=== PATIENT | female | born 1965 | race Caucasian/White ===

== ENCOUNTER 2021-06-11 10:45 | Day surgery (SDC) | payer MEDICARE ==
[2021-06-11] MEDS ORDERED: BUPIVACAINE 0.5% VIAL IJ ONE (10:46)
[2021-06-11] MEDS ORDERED: Depo-Medrol 40 MG/ML IM ONE (10:46)
[2021-06-11] MEDS ORDERED: DIPRIVAN 200 MG/20 ML IV ONE (11:24)
[2021-06-11] MEDS ORDERED: Lactated Ringers 1,000 ML IV ONE (16:13)
--- NOTE | 2021-06-12 11:20 | XRAY ---
8 seconds fluoroscopy time in surgery for intra-articular injection of the right knee.
--- NOTE | 2021-06-12 11:20 | XRAY ---
9 seconds fluoroscopy time in surgery for intra-articular injection of the left knee.
--- NOTE | 2021-06-12 12:09 | XRAY ---
Indication: Intra-articular left knee injection. Intra-operative fluoroscopy was provided for 9 seconds. A single digital spot image was submitted for interpretation demonstrates a needle tip projected over the left femur intercondylar notch. A small amount of contrast has been injected for needle tip placement. Correlate with intraoperative findings/report.
--- NOTE | 2021-06-12 12:11 | XRAY ---
Indication: Intra-articular right knee injection. Intra-operative fluoroscopy was provided for 8 seconds. A single digital spot image was submitted for interpretation demonstrates a needle tip projected over the right femur intercondylar notch. A small amount of contrast has been injected for needle tip placement. Correlate with intraoperative findings/report.
== END 2021-06-11 11:55 | disposition home or self-care (01) ==
LOC: SDC-PAIN 10:45
PROVIDERS: ATTEND Psychiatry & Neurology Pain Medicine
DX: M17.0 Bilateral primary osteoarthritis of knee (principal); Z79.899 Other long term (current) drug therapy
CPT/HCPCS: 20610; 73560; 77002; J1030; J2704; Q9966

== ENCOUNTER 2021-06-25 12:36 | Day surgery (SDC) | payer MEDICARE ==
[2021-06-25] MEDS ORDERED: Depo-Medrol 40 MG/ML IM ONE (12:37)
[2021-06-25] MEDS ORDERED: LIDOCAINE HCL 2% 100 MG/5 ML IJ ONE (12:37)
[2021-06-25] MEDS ORDERED: DIPRIVAN 200 MG/20 ML IV ONE (14:11)
--- NOTE | 2021-06-25 15:03 | XRAY ---
Indication: Bilateral L4-S1 MBB. Intraoperative fluoroscopy provided for 15 seconds. Single digital spot image submitted for interpretation demonstrates posterior needle tips projecting over the expected left and right L4-S1 nerve roots. Correlate with intraoperative findings/report.
[2021-06-25] MEDS ORDERED: Lactated Ringers 1,000 ML IV ONE (15:22)
--- NOTE | 2021-06-25 16:43 | XRAY ---
17 seconds fluoroscopy time in surgery for bilateral L4-S1 MBB.
== END 2021-06-25 14:35 | disposition home or self-care (01) ==
LOC: SDC-PAIN 12:36
PROVIDERS: ATTEND Psychiatry & Neurology Pain Medicine
DX: M47.816 Spondylosis without myelopathy or radiculopathy, lumbar region (principal); Z79.899 Other long term (current) drug therapy
CPT/HCPCS: 64493; 64494; 72020; 77002; J1030; J2704

== ENCOUNTER 2021-08-01 12:33 | Day surgery (SDC) | payer MEDICARE ==
[2021-08-01] MEDS ORDERED: BUPIVACAINE 0.5% VIAL IJ ONE (12:34)
[2021-08-01] MEDS ORDERED: Depo-Medrol 40 MG/ML IM ONE (12:34)
[2021-08-01] MEDS ORDERED: Lactated Ringers 1,000 ML IV ONE (12:41)
[2021-08-01] MEDS ORDERED: DIPRIVAN 200 MG/20 ML IV ONE (14:12)
--- NOTE | 2021-08-01 14:58 | XRAY ---
11 seconds fluoroscopy time in surgery for bilateral L4-S1 MBB.
--- NOTE | 2021-08-01 14:58 | XRAY ---
Indication: Bilateral L4-S1 MBB. Intraoperative fluoroscopy provided for 11 seconds. Single digital spot image submitted for interpretation demonstrates posterior needle tips projecting over the expected left and right L4-S1 nerve roots. Correlate with intraoperative findings/report.
== END 2021-08-01 14:38 | disposition home or self-care (01) ==
LOC: SDC-PAIN 12:33
PROVIDERS: ATTEND Psychiatry & Neurology Pain Medicine
DX: M47.816 Spondylosis without myelopathy or radiculopathy, lumbar region (principal); F41.9 Anxiety disorder, unspecified; F32.9 Major depressive disorder, single episode, unspecified; J44.9 Chronic obstructive pulmonary disease, unspecified; I50.9 Heart failure, unspecified; Z79.899 Other long term (current) drug therapy
CPT/HCPCS: 64493; 64494; 72020; 77002; J1030; J2704

== ENCOUNTER 2021-09-04 11:42 | Day surgery (SDC) | payer MEDICARE ==
[2021-09-04] MEDS ORDERED: BUPIVACAINE 0.5% VIAL IJ ONE (11:43)
[2021-09-04] MEDS ORDERED: Depo-Medrol 40 MG/ML IM ONE (11:43)
[2021-09-04] MEDS ORDERED: Lactated Ringers 1,000 ML IV ONE ×2 (13:20→14:12)
[2021-09-04] MEDS ORDERED: DIPRIVAN 200 MG/20 ML IV ONE (13:44)
--- NOTE | 2021-09-04 16:37 | XRAY ---
Indication: Right knee injection. Intraoperative fluoroscopy provided for 16 seconds. Single digital spot image submitted for interpretation demonstrates needle tip projecting over the right femur intercondylar notch. Small amount of contrast injected for needle tip placement. Correlate with intraoperative findings/report.
--- NOTE | 2021-09-04 16:39 | XRAY ---
16 seconds fluoroscopy time in surgery for intra-articular and pes anserine injections of the right knee.
--- NOTE | 2021-09-04 16:45 | XRAY ---
Indication: Left knee injection. Intraoperative fluoroscopy provided for 5 seconds. Single digital spot image submitted for interpretation demonstrates needle tip projecting over the left femur intercondylar notch. Small amount of contrast injected for needle tip placement. Correlate with intraoperative findings/report.
--- NOTE | 2021-09-04 16:49 | XRAY ---
5 seconds fluoroscopy time in surgery for intra-articular and pes anserine injections of the left knee.
== END 2021-09-04 14:10 | disposition home or self-care (01) ==
LOC: SDC-PAIN 11:42
PROVIDERS: ATTEND Psychiatry & Neurology Pain Medicine
DX: M17.0 Bilateral primary osteoarthritis of knee (principal); Z79.899 Other long term (current) drug therapy
CPT/HCPCS: 20610; 73560; 77002; J1030; J2704; Q9966

== ENCOUNTER 2021-10-08 11:01 | Day surgery (SDC) | payer MEDICARE ==
[2021-10-08] MEDS ORDERED: BUPIVACAINE 0.5% VIAL IJ ONE (11:02)
[2021-10-08] MEDS ORDERED: Xylocaine 1% Vial 30 ML PF IJ ONE (11:02)
[2021-10-08] MEDS ORDERED: Depo-Medrol 40 MG/ML IM ONE (11:02)
[2021-10-08] MEDS ORDERED: Lactated Ringers 1,000 ML IV ONE (12:35)
[2021-10-08] MEDS ORDERED: DIPRIVAN 200 MG/20 ML IV ONE (13:26)
--- NOTE | 2021-10-08 14:26 | XRAY ---
Indication: Left L4-S1 RFA. Intraoperative fluoroscopy provided for 24 seconds. 3 digital spot image submitted for interpretation demonstrates posterior needle tips projecting over the expected left L4-S1 nerve roots. Correlate with intraoperative findings/report.
--- NOTE | 2021-10-08 16:46 | XRAY ---
24 seconds fluoroscopy was used in surgery for a left L4-S1 RFA.
== END 2021-10-08 14:00 | disposition home or self-care (01) ==
LOC: SDC-PAIN 11:01
PROVIDERS: ATTEND Psychiatry & Neurology Pain Medicine
DX: M47.816 Spondylosis without myelopathy or radiculopathy, lumbar region (principal); Z79.899 Other long term (current) drug therapy
CPT/HCPCS: 64493; 64494; 72100; 77002; J1030; J2001; J2704

== ENCOUNTER 2021-10-15 10:34 | Day surgery (SDC) | payer MEDICARE ==
[2021-10-15] MEDS ORDERED: Depo-Medrol 40 MG/ML IM ONE (10:35)
[2021-10-15] MEDS ORDERED: Xylocaine 1% Vial 30 ML PF IJ ONE (10:35)
[2021-10-15] MEDS ORDERED: BUPIVACAINE 0.5% VIAL IJ ONE (10:35)
[2021-10-15] MEDS ORDERED: DIPRIVAN 200 MG/20 ML IV ONE (13:00)
--- NOTE | 2021-10-15 13:29 | XRAY ---
Indication: Right L4-S1 RFA. Intraoperative fluoroscopy provided for 22 seconds. 4 digital spot image submitted for interpretation demonstrates posterior needle tips projecting over the expected right L4-S1 nerve roots. Correlate with intraoperative findings/report.
--- NOTE | 2021-10-15 13:31 | XRAY ---
22 seconds fluoroscopy time in surgery for right L4-S1 RFA.
[2021-10-15] MEDS ORDERED: Lactated Ringers 1,000 ML IV ONE (14:26)
== END 2021-10-15 13:29 | disposition home or self-care (01) ==
LOC: SDC-PAIN 10:34
PROVIDERS: ATTEND Psychiatry & Neurology Pain Medicine
DX: M47.816 Spondylosis without myelopathy or radiculopathy, lumbar region (principal); Z79.899 Other long term (current) drug therapy
CPT/HCPCS: 64635; 64636; 72100; 77002; 82947; J1030; J2001; J2704

== ENCOUNTER 2022-04-08 10:02 | Day surgery (SDC) | payer MEDICARE ==
[2022-04-08] MEDS ORDERED: Depo-Medrol 40 MG/ML IM ONE (10:03)
[2022-04-08] MEDS ORDERED: Marcaine Mpf 0.5% Vial 30 Ml IJ ONE (10:03)
[2022-04-08] MEDS ORDERED: DIPRIVAN 200 MG/20 ML IV ONE (12:26)
--- NOTE | 2022-04-08 13:42 | XRAY ---
Indication: Bilateral SI joint injection. Intraoperative fluoroscopy provided for 16 seconds. 4 digital spot images submitted for interpretation demonstrate posterior needle tips projecting over the inferior left and right SI joint. Correlate with intraoperative findings/report.
--- NOTE | 2022-04-08 14:47 | XRAY ---
16 seconds fluoroscopy time in surgery for bilateral SI joint injections.
== END 2022-04-08 12:48 | disposition home or self-care (01) ==
LOC: SDC-PAIN 10:02
PROVIDERS: ATTEND Psychiatry & Neurology Pain Medicine
DX: M46.1 Sacroiliitis, not elsewhere classified (principal); E11.9 Type 2 diabetes mellitus without complications; Z79.899 Other long term (current) drug therapy
CPT/HCPCS: 27096; 72202; 77002; 82947; G0260; J1030; J2704

== ENCOUNTER → 2022-05-13 | Day surgery (SDC) | payer MEDICARE | LOC: SDC-PAIN 10:43 | PROVIDERS: ATTEND Psychiatry & Neurology Pain Medicine | DX: Z53.9 Procedure and treatment not carried out, unspecified reason (principal) ==

== ENCOUNTER 2022-06-03 07:50 | Day surgery (SDC) | payer MEDICARE ==
[2022-06-03] MEDS ORDERED: LIDOCAINE HCL 1% 50 MG/5 ML VL PF IJ ONE (07:51)
[2022-06-03] MEDS ORDERED: BUPIVACAINE 0.5% VIAL IJ ONE (07:51)
[2022-06-03] MEDS ORDERED: Depo-Medrol 40 MG/ML IM ONE (07:51)
[2022-06-03] MEDS ORDERED: DIPRIVAN 200 MG/20 ML IV ONE (09:01)
[2022-06-03] MEDS ORDERED: Lactated Ringers 1,000 ML IV ONE (14:23)
--- NOTE | 2022-06-03 17:56 | XRAY ---
Indication: Right L4-S1 RFA. Intraoperative fluoroscopy provided for 25 seconds. 3 digital spot images submitted for interpretation demonstrates posterior needle tips projecting over the expected right L4-S1 nerve roots. Correlate with intraoperative findings/report.
--- NOTE | 2022-06-03 18:33 | XRAY ---
25 seconds of fluoroscopy was used in surgery for a right L4-S1 RFA.
== END 2022-06-03 09:15 | disposition home or self-care (01) ==
LOC: SDC-PAIN 07:50
PROVIDERS: ATTEND Psychiatry & Neurology Pain Medicine
DX: M47.816 Spondylosis without myelopathy or radiculopathy, lumbar region (principal); E11.9 Type 2 diabetes mellitus without complications; Z79.899 Other long term (current) drug therapy
CPT/HCPCS: 64635; 64636; 72100; 77002; 82947; J1030; J2001; J2704

== ENCOUNTER 2022-06-10 08:43 | Day surgery (SDC) | payer MEDICARE ==
[2022-06-10] MEDS ORDERED: LIDOCAINE HCL 1% 50 MG/5 ML VL PF IJ ONE (08:44)
[2022-06-10] MEDS ORDERED: Marcaine Mpf 0.5% Vial 30 Ml IJ ONE (08:44)
[2022-06-10] MEDS ORDERED: Depo-Medrol 40 MG/ML IM ONE (08:44)
[2022-06-10] MEDS ORDERED: DIPRIVAN 200 MG/20 ML IV ONE (09:50)
--- NOTE | 2022-06-10 10:49 | XRAY ---
Indication: Left L4-S1 RFA. Intraoperative fluoroscopy provided for 28 seconds. 4 digital spot images submitted for interpretation demonstrates posterior needle tips projecting over the expected left L4-S1 nerve roots. Correlate with intraoperative findings/report.
--- NOTE | 2022-06-10 10:56 | XRAY ---
28 seconds fluoroscopy time in surgery for left L4-S1 RFA.
[2022-06-10] MEDS ORDERED: Lactated Ringers 1,000 ML IV ONE (12:40)
== END 2022-06-10 10:25 | disposition home or self-care (01) ==
LOC: SDC-PAIN 08:43
PROVIDERS: ATTEND Psychiatry & Neurology Pain Medicine
DX: M47.816 Spondylosis without myelopathy or radiculopathy, lumbar region (principal); Z79.899 Other long term (current) drug therapy
CPT/HCPCS: 64635; 64636; 72100; 77002; 82947; J1030; J2001; J2704

== ENCOUNTER 2022-09-09 09:32 | Day surgery (SDC) | payer MEDICARE ==
[2022-09-09] MEDS ORDERED: Depo-Medrol 40 MG/ML IM ONE (09:33)
[2022-09-09] MEDS ORDERED: BUPIVACAINE 0.5% VIAL IJ ONE ×2 (09:33)
[2022-09-09] MEDS ORDERED: DIPRIVAN 200 MG/20 ML IV ONE (11:21)
--- NOTE | 2022-09-09 12:19 | XRAY ---
Indication: Right knee injection. Intraoperative fluoroscopy provided 10 seconds. Single digital spot image submitted for interpretation demonstrates needle tip projecting over the right femur intercondylar notch. Small amount of contrast injected for needle tip placement. Correlate with intraoperative findings/report.
--- NOTE | 2022-09-09 12:19 | XRAY ---
10 seconds of fluoroscopy was used in surgery for a right intra-articular knee injection.
[2022-09-09] MEDS ORDERED: Lactated Ringers 1,000 ML IV ONE (12:52)
== END 2022-09-09 11:50 | disposition home or self-care (01) ==
LOC: SDC-PAIN 09:32
PROVIDERS: ATTEND Psychiatry & Neurology Pain Medicine
DX: M19.011 Primary osteoarthritis, right shoulder (principal); Z79.899 Other long term (current) drug therapy
CPT/HCPCS: 20610; 73560; 77002; 82947; J1030; J2704; Q9966

== ENCOUNTER 2023-05-19 09:50 | Day surgery (SDC) | payer MEDICARE ==
[2023-05-19] MEDS ORDERED: Depo-Medrol 40 MG/ML IM ONE (09:51)
[2023-05-19] MEDS ORDERED: BUPIVACAINE 0.5% VIAL IJ ONE (09:51)
[2023-05-19] MEDS ORDERED: LIDOCAINE HCL 1% 50 MG/5 ML VL PF IJ ONE (09:51)
[2023-05-19] MEDS ORDERED: Xylocaine-Mpf 2% 5 Ml Vial ONE (11:54)
[2023-05-19] MEDS ORDERED: DIPRIVAN 200 MG/20 ML IV ONE (11:54)
[2023-05-19] MEDS ORDERED: Lactated Ringers 1,000 ML IV ONE (12:33)
--- NOTE | 2023-05-19 13:11 | XRAY ---
Indication: Right L4-S1 RFA. Intraoperative fluoroscopy provided for 24 seconds. 3 digital spot image submitted for interpretation demonstrates posterior needle tips projecting over the expected right L4-S1 nerve roots. Correlate with intraoperative findings/report.
--- NOTE | 2023-05-19 13:15 | XRAY ---
24 seconds of fluoroscopy was used in surgery for a right L4-S1 RFA.
== END 2023-05-19 12:25 | disposition home or self-care (01) ==
LOC: SDC-PAIN 09:50
PROVIDERS: ATTEND Psychiatry & Neurology Pain Medicine
DX: M47.816 Spondylosis without myelopathy or radiculopathy, lumbar region (principal); E11.9 Type 2 diabetes mellitus without complications; Z79.899 Other long term (current) drug therapy
CPT/HCPCS: 64635; 64636; 72100; 77002; 82947; J1030; J2001; J2704

== ENCOUNTER 2023-07-08 08:18 | Day surgery (SDC) | payer MEDICARE ==
[2023-07-08] MEDS ORDERED: BUPIVACAINE 0.5% VIAL IJ ONE (08:19)
[2023-07-08] MEDS ORDERED: XYLOCAINE 1% HCL 20 ML MDV IJ ONE (08:19)
[2023-07-08] MEDS ORDERED: DIPRIVAN 200 MG/20 ML IV ONE (10:21)
[2023-07-08] MEDS ORDERED: Lactated Ringers 1,000 ML IV ONE (11:07)
--- NOTE | 2023-07-08 12:26 | XRAY ---
Indication: Left L4-S1 RFA. Intraoperative fluoroscopy provided for 34 seconds. 5 digital spot image submitted for interpretation demonstrates posterior needle tips projecting over the expected left L4-S1 nerve roots. Correlate with intraoperative findings/report.
--- NOTE | 2023-07-08 12:33 | XRAY ---
34 seconds of fluoroscopy was used in surgery for a left L4-S1 RFA.
== END 2023-07-08 10:55 | disposition home or self-care (01) ==
LOC: SDC-PAIN 08:18
PROVIDERS: ATTEND Psychiatry & Neurology Pain Medicine
DX: M47.816 Spondylosis without myelopathy or radiculopathy, lumbar region (principal); E11.9 Type 2 diabetes mellitus without complications
CPT/HCPCS: 64635; 64636; 72100; 77002; 82947; J2704

== ENCOUNTER 2024-08-08 10:25 | Observation (INO) | payer MEDICARE ==
--- NOTE | 2024-08-08 10:51 | ERPHSYRPT ---
- History of Present Illness Time Seen by Provider: 08/08/24 10:40 Historian: patient Exam Limitations: no limitations Patient Subjective Stated Complaint: Chest pain Triage Nursing Assessment: Patient brought to ER per w/c and transferred to bed per self. Patient A+O X 3. Patient's skin pink, warm and dry. Patient states she was across the street at appointment with Pulmonology Dr. Arechiga when they finished her PFT testing they got her up to walk and her heart rate got elevated,into the 130s patient started sweating and she felt fluttering in her chest. Patient states she has chronic low back pain 5/10 and her heart is cont to flutter at times. Lungs clear a/p ector. Dr. Arechiga wanted patient sent to ER for eval. Physician History: 58-year-old female presents to our ED as a referral from her installer technician. Patient just completed a pulmonary function testing. Patient immediately afterwards became tachycardic diaphoretic. Patient experienced heart palpitations and chest pain. She was short of breath. Symptoms persisted until arrival. Patient admits to history of congestive heart failure. No trauma no fever. No vomiting. Patient is currently experiencing "chest pressure". No florentino chest pain per se. Symptoms are moderate in intensity when present. Symptoms are mild at the present time. Patient appears to be resting comfortably. No acute distress. Patient voices no other complaints or concerns at this time. Portions of this note were created with voice recognition technology. There may be grammatical, spelling, punctuation or sound alike errors Timing/Duration: today Activities at Onset: none Quality: aching Location: substernal Chest Pain Radiation: no radiation Severity of Pain-Max: moderate Severity of Pain-Current: mild Modifying Factors: Improves With: nothing Associated Symptoms: denies symptoms Nitro Today/Relief: no nitro taken today Aspirin Treatment Today: no aspirin today Allergies/Adverse Reactions: lamotrigine [From Lamictal] Allergy (Verified 08/08/24 10:28) meperidine [From Demerol] Allergy (Verified 08/08/24 10:28) Home Medications: Unobtainable 08/08/24 [History] Hx Influenza Vaccination/Date Given: Yes Hx Pneumococcal Vaccination/Date Given: Yes Immunizations Up to Date: Yes Travel Risk - International Travel Have you traveled outside of the country in past 3 weeks: No - Emerging Infectious Disease Are you exhibiting symptoms associated with any current EIDs: No - Review of Systems Constitutional: No Symptoms, No Fever, No Chills Eyes: No Symptoms Ears, Nose, & Throat: No Symptoms Respiratory: No Symptoms, No Cough, No Dyspnea Cardiac: No Symptoms, No Chest Pain, No Edema, No Syncope Abdominal/Gastrointestinal: No Symptoms, No Abdominal Pain, No Nausea, No Vomiting, No Diarrhea Genitourinary Symptoms: No Symptoms, No Dysuria Musculoskeletal: No Symptoms, No Back Pain, No Neck Pain Skin: No Symptoms, No Rash Neurological: No Symptoms, No Dizziness, No Focal Weakness, No Sensory Changes Psychological: No Symptoms Endocrine: No Symptoms Hematologic/Lymphatic: No Symptoms Immunological/Allergic: No Symptoms All Other Systems: Reviewed and Negative - Past Medical History Neurological History: Peripheral Neuropathy, Other ENT History: No Pertinent History Cardiac History: No Pertinent History Respiratory History: Asthma, COPD, Sleep Apnea Endocrine Medical History: Other Musculoskeletal History: Arthritis, Fibromyalgia GI Medical History: Diverticulitis, GERD History: No Pertinent History Psycho-Social History: Anxiety, Depression Female Reproductive Disorders: No Pertinent History Other Medical History: Erbs palsy right arm. pre diabetic - Past Surgical History Past Surgical History: Yes Neuro Surgical History: No Pertinent History Cardiac: No Pertinent History Respiratory: No Pertinent History Gastrointestinal: Cholecystectomy Musculoskeletal: Orthopedic Surgery Female Surgical History: Section Other Surgical History: C section X 1. right shoulder fusion - Social History Smoking Status: Never smoker Exposure to second hand smoke: Yes Drug Use: none - Social Determinants of Health Will the patient participate in the screening: Yes Do you worry about a steady place to live?: No Do you have any problems with any of the following?: No known problems In the past 12 months,have you had to go without utilities?: No Transportation Issues: No Has anyone in your support network made you feel unsafe?: No Have you or anyone in your house had to go without enough: No - Nursing Vital Signs Nursing Vital Signs: Initial Vital Signs Temperature 96.0 F 08/08/24 10:30 Pulse Rate 85 08/08/24 10:30 Respiratory Rate 18 08/08/24 10:30 Blood Pressure 157/86 08/08/24 10:30 O2 Sat by Pulse Oximetry 99 08/08/24 10:30 Pain Scale Pain Intensity 4 - Physical Exam General Appearance: no apparent distress, alert Eye Exam: PERRL/EOMI, eyes nml inspection Ears, Nose, Throat Exam: normal ENT inspection, pharynx normal, moist mucous membranes Neck Exam: normal inspection, non-tender, supple, full range of motion Respiratory Exam: normal breath sounds, lungs clear, airway intact, No respiratory distress Cardiovascular Exam: regular rate/rhythm, normal heart sounds Gastrointestinal/Abdomen Exam: soft, No tenderness, No mass Back Exam: normal inspection, No CVA tenderness, No vertebral tenderness Extremity Exam: normal inspection, normal range of motion, pedal edema, other (1+ pitting edema) Neurologic Exam: alert, oriented x 3, cooperative, normal mood/affect, sensation nml, No motor deficits Skin Exam: normal color, warm, dry Lymphatic Exam: No adenopathy SpO2 Interpretation: normal SpO2: 98 O2 Delivery: Room Air - Course Nursing assessment & vital signs reviewed: Yes EKG Interpreted by Me: RATE (82), Sinus Rhythm, NORMAL AXIS, Right Bundle Branch Block Rhythm Strip: 2nd degree type II block - Radiology Exams Chest X-ray Interpretation: Teleradiologist Report (Nonacute chest with chronic features) Ordered Tests: Active Orders 24 hr Category Date Time Status Manager [employer] STAT Care 08/08/24 10:38 Active EKG-ER Only STAT Care 08/08/24 10:37 Active IV Insertion STAT Care 08/08/24 10:37 Active Pulse Oximetry (ED) STAT Care 08/08/24 10:37 Active CHEST 1 VIEW (PORTABLE) Stat Exams 08/08/24 12:01 Completed CBC W DIFF Stat Lab 08/08/24 10:50 Completed CMP Stat Lab 08/08/24 10:50 Completed D-DIMER QUANTITATIVE Stat Lab 08/08/24 10:50 Completed NT PRO BNPII Stat Lab 08/08/24 10:50 Completed TROPONIN Q4H Lab 08/08/24 10:50 Completed TROPONIN Q4H Lab 08/08/24 12:50 Completed TROPONIN Q4H Lab 08/08/24 18:45 Ordered Transfer Order Routine Transfer 08/08/24 Ordered Medication Summary Discontinued Medications Generic Name Dose Route Start Last Admin Trade Name Freq PRN Reason Stop Dose Admin Aspirin 324 mg 08/08/24 10:55 08/08/24 11:27 Aspirin 81 Mg Tab.Chew PO 08/08/24 10:56 324 mg STAT ONE Administration Aspirin Confirm 08/08/24 11:24 Aspirin 81 Mg Tab.Chew Administered 08/08/24 11:25 Dose 324 mg .ROUTE .STK-MED ONE Nitroglycerin 1 gm 08/08/24 10:56 08/08/24 11:27 Nitroglycerin 1 Gm Packet TOP 08/08/24 10:57 1 gm STAT ONE Administration Nitroglycerin Confirm 08/08/24 11:24 Nitroglycerin 1 Gm Packet Administered 08/08/24 11:25 Dose 1 gm .ROUTE .STK-MED ONE Lab/Rad Data: Laboratory Result Diagrams 08/08/24 10:50 08/08/24 10:50 Laboratory Results 08/08/24 08/08/24 08/08/24 Range/Units 12:50 10:50 10:50 WBC (3.98-10.04) x10^3/uL RBC (3.93-5.22) x10^6/uL Hgb (11.2-15.7) g/dL Hct (34.1-44.9) % MCV (79.4-94.8) fL MCH (25.6-32.2) pg MCHC (32.2-35.5) g/dL RDW (11.7-14.4) % Plt Count (182-369) x10^3/uL MPV (9.4-12.3) fL Gran % (34.0-71.1) % Immature Gran % (Auto) (0.001-0.429) % Nucleat RBC Rel Count (0.00-0.2) % Eos # (Auto) (0.04-0.36) x10^3/uL Immature Gran # (Auto) (0.001-0.031) x10^3u/L Absolute Lymphs (auto) (1.18-3.74) x10^3/uL Absolute Monos (auto) (0.24-0.86) x10^3/uL Absolute Nucleated RBC (0.00-0.012) x10^3u/L Lymphocytes % (19.3-51.7) % Monocytes % (4.7-12.5) % Eosinophils % (0.7-5.8) % Basophils % (0.1-1.2) % Absolute Granulocytes (1.56-6.13) x10^3/uL Basophils # (0.01-0.08) x10^3/uL D-Dimer 0.28 (0.0-0.50) mg/L Sodium (135-145) mmol/L Potassium (3.5-5.1) mmol/L Chloride (98-107) mmol/L Carbon Dioxide (22-30) mmol/L Anion Gap (5-15) MEQ/L BUN (7-17) mg/dL Creatinine (0.52-1.04) mg/dL Estimated GFR ML/MIN Glucose (74-106) mg/dL Calcium (8.4-10.2) mg/dL Total Bilirubin (0.2-1.3) mg/dL AST (14-36) U/L ALT (0-35) U/L Alkaline Phosphatase (38-126) U/L Troponin I < 0.012 < 0.012 (0.000-0.033) ng/mL NT-Pro-B Natriuret Pep 69.0 (<300) pg/mL Serum Total Protein (6.3-8.2) g/dL Albumin (3.5-5.0) g/dL 08/08/24 08/08/24 Range/Units 10:50 10:50 WBC 9.0 (3.98-10.04) x10^3/uL RBC 5.07 (3.93-5.22) x10^6/uL Hgb 15.7 (11.2-15.7) g/dL Hct 47.8 H (34.1-44.9) % MCV 94.3 (79.4-94.8) fL MCH 31.0 (25.6-32.2) pg MCHC 32.8 (32.2-35.5) g/dL RDW 12.3 (11.7-14.4) % Plt Count 239 (182-369) x10^3/uL MPV 9.8 (9.4-12.3) fL Gran % 52.3 (34.0-71.1) % Immature Gran % (Auto) 0.6 H (0.001-0.429) % Nucleat RBC Rel Count 0.0 (0.00-0.2) % Eos # (Auto) 0.11 (0.04-0.36) x10^3/uL Immature Gran # (Auto) 0.05 H (0.001-0.031) x10^3u/L Absolute Lymphs (auto) 3.32 (1.18-3.74) x10^3/uL Absolute Monos (auto) 0.77 (0.24-0.86) x10^3/uL Absolute Nucleated RBC 0.00 (0.00-0.012) x10^3u/L Lymphocytes % 36.8 (19.3-51.7) % Monocytes % 8.5 (4.7-12.5) % Eosinophils % 1.2 (0.7-5.8) % Basophils % 0.6 (0.1-1.2) % Absolute Granulocytes 4.73 (1.56-6.13) x10^3/uL Basophils # 0.05 (0.01-0.08) x10^3/uL D-Dimer (0.0-0.50) mg/L Sodium 141 (135-145) mmol/L Potassium 5.1 (3.5-5.1) mmol/L Chloride 105 (98-107) mmol/L Carbon Dioxide 27 (22-30) mmol/L Anion Gap 14.5 (5-15) MEQ/L BUN 20 H (7-17) mg/dL Creatinine 1.02 (0.52-1.04) mg/dL Estimated GFR 64.6 ML/MIN Glucose 98 (74-106) mg/dL Calcium 9.8 (8.4-10.2) mg/dL Total Bilirubin 0.60 (0.2-1.3) mg/dL AST 46 H (14-36) U/L ALT 53 H (0-35) U/L Alkaline Phosphatase 76 (38-126) U/L Troponin I (0.000-0.033) ng/mL NT-Pro-B Natriuret Pep (<300) pg/mL Serum Total Protein 7.7 (6.3-8.2) g/dL Albumin 4.3 (3.5-5.0) g/dL - Progress Progress: improved Air Movement: good Progress Note: 58-year-old female presents to our ED for evaluation of chest pain and heart palpitations. Patient's heart score is a 4 which mandates admission for further evaluation. Patient will require hospitalization for further evaluation and treatment. Troponin negative x 2. Vital stable. Case discussed with hospitalist Dr. Rodas who accepts admission to observation at 1 PM. Portions of this note were created with voice recognition technology. There may be grammatical, spelling, punctuation or sound alike errors Complexity of problem addressed is moderate acute complicated. No critical care time. Complex of data reviewed and analyzed is extensive. Test ordered chest reviewed results analyzed and correlated clinically with history and physical exam. Risk of complication and or risk of morbidity/mortality of patient management is high. Patient requires hospitalization for further evaluation and treatment. Vital stable. Time spent admit patient approximately 20 minutes. Plan of care established for shared decision making. No social determinants of health present to impede follow-up. Portions of this note were created with voice recognition technology. There may be grammatical, spelling, punctuation or sound alike errors 08/08/24 13:32 Blood Culture(s) Obtained: No Antibiotics given: No Counseled pt/family regarding: lab results, diagnosis, rad results - Departure Departure Disposition: Observation Clinical Impression: ACS (acute coronary syndrome), Chest pain, Right bundle branch block Condition: Stable Critical Care Time: No Referrals: DOCTOR,NO FAMILY [Primary Care Provider] - Follow up/PCP as directed
[2024-08-08 10:52] LABS: Absolute Neutrophil Ct (ANC) 4.73 x10^3/uL (1.56-6.13); BASOPHIL % 0.6 % (0.1-1.2); Basophil (Absolute #) 0.05 x10^3/uL (0.01-0.08); Eosinophil % 1.2 % (0.7-5.8); Eosinophil (Absolute #) 0.11 x10^3/uL (0.04-0.36); Hematocrit 47.8 % (34.1-44.9); Hemoglobin 15.7 g/dL (11.2-15.7); IMMATURE GRAN # 0.05 x10^3u/L (0.001-0.031); IMMATURE GRAN % 0.6 % (0.001-0.429); Lymphocyte (Absolute #) 3.32 x10^3/uL (1.18-3.74); Lymphocytes % 36.8 % (19.3-51.7); Mean Cell Volume 94.3 fL (79.4-94.8); Mean Corpuscular Hgb Concent. 32.8 g/dL (32.2-35.5); Mean Platelet Volume 9.8 fL (9.4-12.3); Monocyte (Absolute #) 0.77 x10^3/uL (0.24-0.86); Monocytes % 8.5 % (4.7-12.5); Neutrophil % 52.3 % (34.0-71.1); Platelet Count 239 x10^3/uL (182-369); Red Blood Count 5.07 x10^6/uL (3.93-5.22); Red Cell Distribution Width 12.3 % (11.7-14.4)
[2024-08-08 11:02] LABS: ALBUMIN 4.3 g/dL (3.5-5.0); ANION GAP 14.5 MEQ/L (5-15); BILIRUBIN,TOTAL 0.6 mg/dL (0.2-1.3); Calcium 9.8 mg/dL (8.4-10.2); Creatinine 1 1.02 mg/dL (0.52-1.04); EST GLOMERULAR FILTRATION RATE 64.6 ML/MIN; Potassium 5.1 mmol/L (3.5-5.1); Total Protein 7.7 g/dL (6.3-8.2)
[2024-08-08 11:14] LABS: TROPONIN < 0.012 ng/mL (0.000-0.033)
[2024-08-08] MEDS ORDERED: BABY ASPIRIN 81 MG CHEW ONE (11:24)
[2024-08-08] MEDS ORDERED: NITRO-BID 2% UD PACKETS ONE (11:24)
[2024-08-08] MEDS: BABY ASPIRIN 81 MG CHEW PO ONE (11:27)
[2024-08-08] MEDS: NITRO-BID 2% UD PACKETS TOP ONE (11:27)
--- NOTE | 2024-08-08 12:50 | XRAY ---
Indication: Pain. Comparison: December 02, 2021 Portable chest inflated again with minimal bibasilar fibrosis/scarring. No focal infiltrate, consolidation, or large effusion. Heart not enlarged. Bony thorax intact again with osteopenia, degenerative changes, and old right humerus fracture with grossly intact hardware. Impression: Continued nonacute chest with chronic features.
--- NOTE | 2024-08-08 15:05 | PCM.HP ---
History of Present Illness - Chief Complaint Chief Complaint: ACS, Chest pain Date: 08/08/24 History of Present Illness: is a 58 year old female with PMHX of CHF, peripheral neuropathy, Asthma, COPD, Sleep apnea, arthritis, Fibromyalgia, diverticulitis, GERD, Anxiety, depression, Pre-DM, and morbid obesity. 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 Patient just completed a pulmonary function testing and immediately afterwards became tachycardic and diaphoretic. Patient experienced heart palpitations and chest pain. She was short of breath. Symptoms persisted until arrival. Patient admits to history of congestive heart failure. No trauma no fever. No vomiting. Patient is currently experiencing "chest pressure and abnormal heart sensation". Symptoms are moderate in intensity when present. Symptoms are mild at the present time. Patient appears to be resting comfortably. No acute distress. She states she feels short of breath and O2 is 97% Room air. She reposrts she does have anxiety and it could be related to this. 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 In ER she was treated with nitro paste and 324 mg ASA. - Review of Systems Constitutional: No Fever, No Chills Eyes: No Symptoms Ears, Nose, & Throat: No Symptoms Respiratory: No Cough, No Short Of Breath Cardiac: Palpitations, No Chest Pain, No Edema, No Syncope Abdominal/Gastrointestinal: No Abdominal Pain, No Nausea, No Vomiting, No Diarrhea Genitourinary Symptoms: No Dysuria Musculoskeletal: No Back Pain, No Neck Pain Skin: No Rash Neurological: No Dizziness, No Focal Weakness, No Sensory Changes Psychological: No Symptoms, Anxiety Endocrine: No Symptoms Hematologic/Lymphatic: No Symptoms Immunological/Allergic: No Symptoms Medications & Allergies Home Medications: Home Medication List Albuterol Sulfate Mdi [ALBUTEROL/Proair Hfa MDI] 2 puff IH Q4HPRN PRN 08/08/24 [History Confirmed 08/08/24] Buspirone HCl 5 mg [Buspar 5 mg] 15 mg PO TID 08/08/24 [History Confirmed 08/08/24] Dapagliflozin Propanediol [Dapagliflozin] 10 mg PO QAM 08/08/24 [History Confirmed 08/08/24] Desvenlafaxine [Desvenlafaxine ER] 50 mg PO DAILY 08/08/24 [History Confirmed 08/08/24] Diclofenac Sodium [Voltaren Arthritis Pain] 20 gm TP BID 08/08/24 [History Confirmed 08/08/24] Duloxetine HCl 30 mg [Cymbalta 30 MG Capsule] 30 mg PO QAM 08/08/24 [History Confirmed 08/08/24] Famotidine 20 mg [Pepcid 20 MG] 20 mg PO BID 08/08/24 [History Confirmed 08/08/24] Fluticasone/Vilanterol [Breo Ellipta 200-25 Mcg Inhalr] 1 puff IH DAILY 08/08/24 [History Confirmed 08/08/24] Gabapentin [Neurontin] 800 mg PO QID 08/08/24 [History Confirmed 08/08/24] Hydrocodone/Acetaminophen [Hydrocodone-Acetamin 10-325 mg] 1 tab PO TIDPRN PRN 08/08/24 [History Confirmed 08/08/24] Hydroxychloroquine Sulfate [Plaquenil] 200 mg PO DAILY 08/08/24 [History Confirmed 08/08/24] Hydroxyzine HCl 25 mg [Atarax 25 mg] 25 mg PO DAILY PRN PRN 08/08/24 [History Confirmed 08/08/24] Loratadine 10 mg [Claritin 10 mg] 10 mg PO DAILY 08/08/24 [History Confirmed 08/08/24] Montelukast Sodium 10 mg [Singulair 10 MG] 10 mg PO DAILY 08/08/24 [History Confirmed 08/08/24] Nystatin Powder 15 gm [Nystop Powder 15 gm] 1 gm TP BID 08/08/24 [History Confirmed 08/08/24] Omeprazole 20 mg PO DAILY 08/08/24 [History Confirmed 08/08/24] Potassium Chloride [Klor-Con M20] 20 meq PO DAILY 08/08/24 [History Confirmed 08/08/24] Spironolactone [Aldactone] 50 mg PO QAM 08/08/24 [History Confirmed 08/08/24] Tiotropium [place] Inhaler [Spiriva 18 Mcg/Cap Inhaler] 1 puff IH DAILY PRN PRN 08/08/24 [History Confirmed 08/08/24] Tirzepatide [Mounjaro] 1 ml SQ TH 08/08/24 [History Confirmed 08/08/24] estradioL [Estradiol (Once Weekly)] 1 each TD WEEKLY 08/08/24 [History Confirmed 08/08/24] metOLazone [Metolazone] 5 mg PO MOTH 08/08/24 [History Confirmed 08/08/24] Allergies/Adverse Reactions: Allergies Allergy/AdvReac Type Severity Reaction Status Date / Time lamotrigine [From Lamictal] Allergy Verified 08/08/24 10:28 meperidine [From Demerol] Allergy Verified 08/08/24 10:28 - Past Medical History Neurological History: Peripheral Neuropathy, Other ENT History: No Pertinent History Cardiac History: No Pertinent History Respiratory History: Asthma, COPD, Sleep Apnea Endocrine Medical History: Other Musculoskelatal History: Arthritis, Fibromyalgia GI Medical History: Diverticulitis, GERD History: No Pertinent History Pyscho-Social History: Anxiety, Depression Reproductive Disorders: No Pertinent History Comment: Erbs palsy right arm. pre diabetic - Past Surgical History Past Surgical History: Yes Neuro Surgical History: No Pertinent History Cardiac History: No Pertinent History Respiratory Surgery: No Pertinent History GI Surgical History: Cholecystectomy Musculskeletal Surgical Hx: Orthopedic Surgery Female Surgical History: Section Other Surgical History: C section X 1. right shoulder fusion Significant Family History: heart disease (mother- heart surgery, grandmother heart problems ) - Social History Smoking Status: Never smoker Exposure to second hand smoke: Yes Alcohol: Occasionally Drug Use: none - Social Determinants of Health Will the patient participate in the screening: Yes Do you worry about a steady place to live?: No Do you have any problems with any of the following?: No known problems In the past 12 months,have you had to go without utilities?: No Have you or anyone in your house had to go without enough: No Transportation Issues: No Has anyone in your support network made you feel unsafe?: No - Physical Exam Vital Signs: Vital Signs - 24 hr Temp Pulse Resp BP BP Pulse Ox 08/08/24 13:46 85 19 115/83 96 08/08/24 13:36 98 08/08/24 13:30 89 27 H 158/95 90 L 08/08/24 13:15 90 18 140/89 98 08/08/24 13:01 84 21 147/102 98 08/08/24 12:45 83 22 127/104 98 08/08/24 12:31 85 18 100/65 98 08/08/24 12:16 81 21 117/70 94 L 08/08/24 12:01 80 24 107/68 99 08/08/24 12:00 86 17 97 08/08/24 11:50 86 24 98 08/08/24 11:47 85 23 98 08/08/24 11:31 85 18 131/75 99 08/08/24 10:43 98 08/08/24 10:30 96.0 F 85 18 157/86 99 General Appearance: no apparent distress, alert, obese Neurologic Exam: alert, oriented x 3, cooperative, normal mood/affect, nml cerebellar function, nml station & gait, sensation nml, No motor deficits Eye Exam: PERRL/EOMI, eyes nml inspection Ears, Nose, Throat Exam: normal ENT inspection, TMs normal, pharynx normal, moist mucous membranes Neck Exam: normal inspection, non-tender, supple, full range of motion Respiratory Exam: normal breath sounds, lungs clear, No respiratory distress Cardiovascular Exam: regular rate/rhythm, normal heart sounds, normal peripheral pulses Gastrointestinal/Abdomen Exam: soft, normal bowel sounds, No tenderness, No mass Back Exam: normal inspection, normal range of motion, No CVA tenderness, No vertebral tenderness Extremity Exam: normal inspection, normal range of motion, pelvis stable Skin Exam: normal color, warm, dry, No rash Lymphatic Exam: No adenopathy Results - Labs Lab/Micro Results: Lab Results-Last 24 Hours 08/08/24 08/08/24 08/08/24 Range/Units 10:50 10:50 10:50 WBC 9.0 (3.98-10.04) x10^3/uL RBC 5.07 (3.93-5.22) x10^6/uL Hgb 15.7 (11.2-15.7) g/dL Hct 47.8 H (34.1-44.9) % MCV 94.3 (79.4-94.8) fL MCH 31.0 (25.6-32.2) pg MCHC 32.8 (32.2-35.5) g/dL RDW 12.3 (11.7-14.4) % Plt Count 239 (182-369) x10^3/uL MPV 9.8 (9.4-12.3) fL Gran % 52.3 (34.0-71.1) % Immature Gran % (Auto) 0.6 H (0.001-0.429) % Nucleat RBC Rel Count 0.0 (0.00-0.2) % Eos # (Auto) 0.11 (0.04-0.36) x10^3/uL Immature Gran # (Auto) 0.05 H (0.001-0.031) x10^3u/L Absolute Lymphs (auto) 3.32 (1.18-3.74) x10^3/uL Absolute Monos (auto) 0.77 (0.24-0.86) x10^3/uL Absolute Nucleated RBC 0.00 (0.00-0.012) x10^3u/L Lymphocytes % 36.8 (19.3-51.7) % Monocytes % 8.5 (4.7-12.5) % Eosinophils % 1.2 (0.7-5.8) % Basophils % 0.6 (0.1-1.2) % Absolute Granulocytes 4.73 (1.56-6.13) x10^3/uL Basophils # 0.05 (0.01-0.08) x10^3/uL D-Dimer 0.28 (0.0-0.50) mg/L Sodium 141 (135-145) mmol/L Potassium 5.1 (3.5-5.1) mmol/L Chloride 105 (98-107) mmol/L Carbon Dioxide 27 (22-30) mmol/L Anion Gap 14.5 (5-15) MEQ/L BUN 20 H (7-17) mg/dL Creatinine 1.02 (0.52-1.04) mg/dL Estimated GFR 64.6 ML/MIN Glucose 98 (74-106) mg/dL Calcium 9.8 (8.4-10.2) mg/dL Total Bilirubin 0.60 (0.2-1.3) mg/dL AST 46 H (14-36) U/L ALT 53 H (0-35) U/L Alkaline Phosphatase 76 (38-126) U/L Troponin I (0.000-0.033) ng/mL NT-Pro-B Natriuret Pep (<300) pg/mL Serum Total Protein 7.7 (6.3-8.2) g/dL Albumin 4.3 (3.5-5.0) g/dL 08/08/24 08/08/24 Range/Units 10:50 12:50 WBC (3.98-10.04) x10^3/uL RBC (3.93-5.22) x10^6/uL Hgb (11.2-15.7) g/dL Hct (34.1-44.9) % MCV (79.4-94.8) fL MCH (25.6-32.2) pg MCHC (32.2-35.5) g/dL RDW (11.7-14.4) % Plt Count (182-369) x10^3/uL MPV (9.4-12.3) fL Gran % (34.0-71.1) % Immature Gran % (Auto) (0.001-0.429) % Nucleat RBC Rel Count (0.00-0.2) % Eos # (Auto) (0.04-0.36) x10^3/uL Immature Gran # (Auto) (0.001-0.031) x10^3u/L Absolute Lymphs (auto) (1.18-3.74) x10^3/uL Absolute Monos (auto) (0.24-0.86) x10^3/uL Absolute Nucleated RBC (0.00-0.012) x10^3u/L Lymphocytes % (19.3-51.7) % Monocytes % (4.7-12.5) % Eosinophils % (0.7-5.8) % Basophils % (0.1-1.2) % Absolute Granulocytes (1.56-6.13) x10^3/uL Basophils # (0.01-0.08) x10^3/uL D-Dimer (0.0-0.50) mg/L Sodium (135-145) mmol/L Potassium (3.5-5.1) mmol/L Chloride (98-107) mmol/L Carbon Dioxide (22-30) mmol/L Anion Gap (5-15) MEQ/L BUN (7-17) mg/dL Creatinine (0.52-1.04) mg/dL Estimated GFR ML/MIN Glucose (74-106) mg/dL Calcium (8.4-10.2) mg/dL Total Bilirubin (0.2-1.3) mg/dL AST (14-36) U/L ALT (0-35) U/L Alkaline Phosphatase (38-126) U/L Troponin I < 0.012 < 0.012 (0.000-0.033) ng/mL NT-Pro-B Natriuret Pep 69.0 (<300) pg/mL Serum Total Protein (6.3-8.2) g/dL Albumin (3.5-5.0) g/dL - Radiology Impressions Radiology Exams & Impressions: Radiology Procedures Category Date Time Status CHEST 1 VIEW (PORTABLE) Stat Exams 08/08/24 12:01 Completed Assessment/Plan (1) Chest discomfort Current Visit: Yes Status: Acute Assessment & Plan: - 2:2 PFT testing today - Tele - Trops x3-trend - trop x2 negative - Echo - CBC, CMP reviewed - EKG - CXR - negative for acute concern Code(s): R07.89 - OTHER CHEST PAIN (2) Tachycardia Current Visit: Yes Status: Resolved Assessment & Plan: - resolved since admission Code(s): R00.0 - TACHYCARDIA, UNSPECIFIED (3) Palpitations Current Visit: Yes Status: Resolved Assessment & Plan: - resolved since admission Code(s): R00.2 - PALPITATIONS (4) Fibromyalgia Current Visit: Yes Status: Chronic (5) GERD (gastroesophageal reflux disease) Current Visit: Yes Status: Chronic Assessment & Plan: -Continue home meds Code(s): K21.9 - GASTRO-ESOPHAGEAL REFLUX DISEASE WITHOUT ESOPHAGITIS (6) Morbid obesity with BMI of 45.0-49.9, adult Current Visit: Yes Status: Chronic Assessment & Plan: - advised ADA diet and exercise control Code(s): E66.01 - MORBID (SEVERE) OBESITY DUE TO EXCESS CALORIES; Z68.42 - BODY MASS INDEX [BMI] 45.0-49.9, ADULT (7) Sleep apnea Current Visit: Yes Status: Chronic Assessment & Plan: - RT to set up cpap at night Code(s): G47.30 - SLEEP APNEA, UNSPECIFIED (8) Depression with anxiety Current Visit: Yes Status: Chronic Assessment & Plan: - continue home meds Code(s): F41.8 - OTHER SPECIFIED ANXIETY DISORDERS (9) COPD (chronic obstructive pulmonary disease) Current Visit: Yes Status: Chronic Assessment & Plan: - Continue home meds - had PFT testing today VTE: Lovenox PPI: Protonix Next of KIN: Sibling, Nathan Cool- [phone] D/C plan: tomorrow Code status: Full Telemedicine Encounter - Telemedicine Encounter Telemedicine Encounter: "The entirety of this encounter was performed via Telemedicine" This visit was performed using real-time audio and video connection between my location and thepatients locationwith the assistance of a surrogateat the patients location. Written or verbal consent was obtained from the patient/guardian to perform this visit usingsynchronoustelemedicine technology. Any patient questions regarding the telemedicine interaction were answered.
[2024-08-08] MEDS ORDERED: NON-FORMULARY ITEM (Albuterol Sulfate Mdi*** 8.5 GM Hfa.Aer.Ad) IH PRN (15:10)
[2024-08-08] MEDS ORDERED: ATARAX 25 MG PO PRN (15:10)
[2024-08-08] MEDS ORDERED: Spiriva 18 Mcg/Cap Inhaler IH PRN (15:10)
[2024-08-08] MEDS ORDERED: ESTRADIOL TD SCH (15:15)
[2024-08-08] MEDS ORDERED: VENTOLIN COMMON CANISTER IH PRN (15:18)
[2024-08-08] MEDS ORDERED: MEDICATION INTERVENTION MC SCH ×2 (15:30→15:45)
[2024-08-08] MEDS: Neurontin PO SCH (16:42)
[2024-08-08] MEDS: NORCO 10-325 MG PO PRN (16:43)
[2024-08-08] MEDS ORDERED: NON-FORMULARY ITEM (Gabapentin [Neurontin] 800 MG Tablet) PO SCH (17:00)
[2024-08-08] MEDS: Advair Hfa 230/21 Mcg COMMON CANISTER IH SCH (19:30)
[2024-08-08] MEDS: NYSTOP POWDER 15 GM TP SCH (21:31)
[2024-08-08] MEDS: BUSPAR 5 MG PO SCH (21:32)
[2024-08-08] MEDS: Pepcid 20 MG PO SCH (21:32)
[2024-08-09] MEDS ORDERED: DICLOFENAC SODIUM TP ONE (04:00)
[2024-08-09] MEDS: DICLOFENAC SODIUM TP SCH (04:01)
[2024-08-09 05:22] LABS: Hematocrit 46.3 % (34.1-44.9); Hemoglobin 14.8 g/dL (11.2-15.7); Mean Cell Volume 96.9 fL (79.4-94.8); Mean Platelet Volume 10.6 fL (9.4-12.3); Platelet Count 204 x10^3/uL (182-369); Red Blood Count 4.78 x10^6/uL (3.93-5.22); Red Cell Distribution Width 12.6 % (11.7-14.4); White Blood Count 7.5 x10^3/uL (3.98-10.04)
[2024-08-09 06:36] LABS: ANION GAP 12.2 MEQ/L (5-15); Calcium 9.9 mg/dL (8.4-10.2); Creatinine 1 0.93 mg/dL (0.52-1.04); EST GLOMERULAR FILTRATION RATE 72.1 ML/MIN; Potassium 4.2 mmol/L (3.5-5.1)
[2024-08-09] MEDS: Spiriva 18 Mcg/Cap Inhaler IH SCH (07:40)
[2024-08-09] MEDS: NON-FORMULARY ITEM PO SCH (08:26)
[2024-08-09] MEDS: Aldactone 25 MG PO SCH (09:13)
[2024-08-09] MEDS: PRISTIQ ER PO SCH (09:14)
[2024-08-09] MEDS: CLARITIN 10 MG PO SCH (09:14)
[2024-08-09] MEDS: Klor Con PO SCH (09:14)
[2024-08-09] MEDS: Cymbalta 30 MG Capsule PO SCH (09:14)
[2024-08-09] MEDS: Protonix 40MG Tablet PO SCH (09:14)
[2024-08-09] MEDS: Singulair 10 MG PO SCH (09:15)
[2024-08-09] MEDS: ENOXAPARIN SODIUM SQ SCH (09:15)
[2024-08-09] MEDS ORDERED: NON-FORMULARY ITEM (Omeprazole [Omeprazole] 20 MG Tablet.Dr) PO SCH (10:00)
[2024-08-09] MEDS ORDERED: NON-FORMULARY ITEM (Fluticasone/Vilanterol [Breo Ellipta 200-25 Mcg Inhalr] 1 EACH Blst.W. IH SCH (10:00)
[2024-08-09] MEDS ORDERED: NON-FORMULARY ITEM (Desvenlafaxine [Desvenlafaxine Er] 50 MG Tab.Er.24h) PO SCH (10:00)
[2024-08-09] MEDS ORDERED: NON-FORMULARY ITEM (Potassium Chloride [Klor-Con M20] 20 MEQ Tab.Er.Prt) PO SCH (10:00)
[2024-08-09] MEDS ORDERED: NON-FORMULARY ITEM (Hydroxychloroquine Sulfate [Plaquenil] 200 MG Tablet) PO SCH (10:00)
[2024-08-09] MEDS ORDERED: DAPAGLIFLOZIN PROPANEDIOL 10 MG PO SCH (10:00)
[2024-08-09] MEDS ORDERED: NON-FORMULARY ITEM (Spironolactone [Aldactone] 50 MG Tablet) PO SCH (10:00)
--- NOTE | 2024-08-09 11:08 | PCM.DS ---
Discharge Summary Date of Admission: 08/08/24 13:55 Date of Discharge: 08/09/24 Admitting Physician: CLIVE RENDON MD Primary Care Provider: NO FAMILY DOCTOR Allergies Allergies lamotrigine [From Lamictal] Allergy (Verified 08/08/24 10:28) meperidine [From Demerol] Allergy (Verified 08/08/24 10:28) Hospital Summary - Hospital Course Hospital Course: 08/08/24 is a 58 year old female with PMHX of CHF, peripheral neuropathy, Asthma, COPD, Sleep apnea, arthritis, Fibromyalgia, diverticulitis, GERD, Anxiety, depression, Pre-DM, and morbid obesity. 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 Patient just completed a pulmonary function testing and immediately afterwards became tachycardic and diaphoretic. Patient experienced heart palpitations and chest pain. She was short of breath. Symptoms persisted until arrival. Patient admits to history of congestive heart failure. No trauma no fever. No vomiting. Patient is currently experiencing "chest pressure and abnormal heart sensation". Symptoms are moderate in intensity when present. Symptoms are mild at the present time. Patient appears to be resting comfortably. No acute distress. She states she feels short of breath and O2 is 97% Room air. She reposrts she does have anxiety and it could be related to this. Initial troponin is negative will continue to trend and watch on the cardiac specialist. In ER she was treated with nitro paste and 324 mg ASA. 08/09/24 Pt resting in the chair this morning. She states she feels much better and is ready to leave. Trop x3 negative and she denies any CP today. Echo results pending. Will have pt f/u OP with cardiology and PCP OP. Pt feels her sxs may have been related to anxiety. She denies CP, SOB, abd. pain, N/V/D. - Vitals & Intake/Output Vital Signs: Vital Signs Temperature 96.2 F 08/09/24 07:46 Pulse Rate 79 08/09/24 07:46 Respiratory Rate 18 08/09/24 07:46 Blood Pressure 116/55 08/09/24 07:46 O2 Sat by Pulse Oximetry 92 L 08/09/24 07:46 Intake & Output: Intake & Output 08/06/24 08/07/24 08/08/24 08/09/24 11:59 11:59 11:59 11:59 Intake Total 360 Balance 360 Weight 131.5 kg 130.4 kg - Lab Result Diagrams: 08/09/24 04:50 08/09/24 04:50 Lab Results-Last 24 Hrs: Lab Results-Last 24 Hours 08/08/24 08/08/24 08/08/24 Range/Units 10:50 10:50 10:50 WBC 9.0 (3.98-10.04) x10^3/uL RBC 5.07 (3.93-5.22) x10^6/uL Hgb 15.7 (11.2-15.7) g/dL Hct 47.8 H (34.1-44.9) % MCV 94.3 (79.4-94.8) fL MCH 31.0 (25.6-32.2) pg MCHC 32.8 (32.2-35.5) g/dL RDW 12.3 (11.7-14.4) % Plt Count 239 (182-369) x10^3/uL MPV 9.8 (9.4-12.3) fL Gran % 52.3 (34.0-71.1) % Immature Gran % (Auto) 0.6 H (0.001-0.429) % Nucleat RBC Rel Count 0.0 (0.00-0.2) % Eos # (Auto) 0.11 (0.04-0.36) x10^3/uL Immature Gran # (Auto) 0.05 H (0.001-0.031) x10^3u/L Absolute Lymphs (auto) 3.32 (1.18-3.74) x10^3/uL Absolute Monos (auto) 0.77 (0.24-0.86) x10^3/uL Absolute Nucleated RBC 0.00 (0.00-0.012) x10^3u/L Lymphocytes % 36.8 (19.3-51.7) % Monocytes % 8.5 (4.7-12.5) % Eosinophils % 1.2 (0.7-5.8) % Basophils % 0.6 (0.1-1.2) % Absolute Granulocytes 4.73 (1.56-6.13) x10^3/uL Basophils # 0.05 (0.01-0.08) x10^3/uL D-Dimer 0.28 (0.0-0.50) mg/L Sodium 141 (135-145) mmol/L Potassium 5.1 (3.5-5.1) mmol/L Chloride 105 (98-107) mmol/L Carbon Dioxide 27 (22-30) mmol/L Anion Gap 14.5 (5-15) MEQ/L BUN 20 H (7-17) mg/dL Creatinine 1.02 (0.52-1.04) mg/dL Estimated GFR 64.6 ML/MIN Glucose 98 (74-106) mg/dL Calcium 9.8 (8.4-10.2) mg/dL Total Bilirubin 0.60 (0.2-1.3) mg/dL AST 46 H (14-36) U/L ALT 53 H (0-35) U/L Alkaline Phosphatase 76 (38-126) U/L Troponin I (0.000-0.033) ng/mL NT-Pro-B Natriuret Pep (<300) pg/mL Serum Total Protein 7.7 (6.3-8.2) g/dL Albumin 4.3 (3.5-5.0) g/dL 08/08/24 08/08/24 08/08/24 Range/Units 10:50 12:50 18:40 WBC (3.98-10.04) x10^3/uL RBC (3.93-5.22) x10^6/uL Hgb (11.2-15.7) g/dL Hct (34.1-44.9) % MCV (79.4-94.8) fL MCH (25.6-32.2) pg MCHC (32.2-35.5) g/dL RDW (11.7-14.4) % Plt Count (182-369) x10^3/uL MPV (9.4-12.3) fL Gran % (34.0-71.1) % Immature Gran % (Auto) (0.001-0.429) % Nucleat RBC Rel Count (0.00-0.2) % Eos # (Auto) (0.04-0.36) x10^3/uL Immature Gran # (Auto) (0.001-0.031) x10^3u/L Absolute Lymphs (auto) (1.18-3.74) x10^3/uL Absolute Monos (auto) (0.24-0.86) x10^3/uL Absolute Nucleated RBC (0.00-0.012) x10^3u/L Lymphocytes % (19.3-51.7) % Monocytes % (4.7-12.5) % Eosinophils % (0.7-5.8) % Basophils % (0.1-1.2) % Absolute Granulocytes (1.56-6.13) x10^3/uL Basophils # (0.01-0.08) x10^3/uL D-Dimer (0.0-0.50) mg/L Sodium (135-145) mmol/L Potassium (3.5-5.1) mmol/L Chloride (98-107) mmol/L Carbon Dioxide (22-30) mmol/L Anion Gap (5-15) MEQ/L BUN (7-17) mg/dL Creatinine (0.52-1.04) mg/dL Estimated GFR ML/MIN Glucose (74-106) mg/dL Calcium (8.4-10.2) mg/dL Total Bilirubin (0.2-1.3) mg/dL AST (14-36) U/L ALT (0-35) U/L Alkaline Phosphatase (38-126) U/L Troponin I < 0.012 < 0.012 < 0.012 (0.000-0.033) ng/mL NT-Pro-B Natriuret Pep 69.0 (<300) pg/mL Serum Total Protein (6.3-8.2) g/dL Albumin (3.5-5.0) g/dL 08/09/24 08/09/24 Range/Units 04:50 04:50 WBC 7.5 (3.98-10.04) x10^3/uL RBC 4.78 (3.93-5.22) x10^6/uL Hgb 14.8 (11.2-15.7) g/dL Hct 46.3 H (34.1-44.9) % MCV 96.9 H (79.4-94.8) fL MCH 31.0 (25.6-32.2) pg MCHC 32.0 L (32.2-35.5) g/dL RDW 12.6 (11.7-14.4) % Plt Count 204 (182-369) x10^3/uL MPV 10.6 (9.4-12.3) fL Gran % (34.0-71.1) % Immature Gran % (Auto) (0.001-0.429) % Nucleat RBC Rel Count (0.00-0.2) % Eos # (Auto) (0.04-0.36) x10^3/uL Immature Gran # (Auto) (0.001-0.031) x10^3u/L Absolute Lymphs (auto) (1.18-3.74) x10^3/uL Absolute Monos (auto) (0.24-0.86) x10^3/uL Absolute Nucleated RBC (0.00-0.012) x10^3u/L Lymphocytes % (19.3-51.7) % Monocytes % (4.7-12.5) % Eosinophils % (0.7-5.8) % Basophils % (0.1-1.2) % Absolute Granulocytes (1.56-6.13) x10^3/uL Basophils # (0.01-0.08) x10^3/uL D-Dimer (0.0-0.50) mg/L Sodium 141 (135-145) mmol/L Potassium 4.2 (3.5-5.1) mmol/L Chloride 104 (98-107) mmol/L Carbon Dioxide 29 (22-30) mmol/L Anion Gap 12.2 (5-15) MEQ/L BUN 18 H (7-17) mg/dL Creatinine 0.93 (0.52-1.04) mg/dL Estimated GFR 72.1 ML/MIN Glucose 88 (74-106) mg/dL Calcium 9.9 (8.4-10.2) mg/dL Total Bilirubin (0.2-1.3) mg/dL AST (14-36) U/L ALT (0-35) U/L Alkaline Phosphatase (38-126) U/L Troponin I (0.000-0.033) ng/mL NT-Pro-B Natriuret Pep (<300) pg/mL Serum Total Protein (6.3-8.2) g/dL Albumin (3.5-5.0) g/dL - Radiology Exams Ordered Rad Exams-Entire Visit: Radiology Procedures Category Date Time Status CHEST 1 VIEW (PORTABLE) Stat Exams 08/08/24 12:01 Completed ECHO W/2D AND DOPPLER [US] Routine Exams 08/08/24 15:15 Taken - Procedures and Test Procedures and Tests throughout Hospitalization: Therapy Orders & Screens 08/08/24 15:09 RT Miscellaneous Order ROUTINE Comment: Physician Instructions: Reason For Exam: CPAP at noc Diagnosis: ACS, Chest pain 08/08/24 16:10 BiPap/CPAP ROUTINE Comment: 10CM H2O Diagnosis: ACS, Chest pain 08/08/24 16:42 RT Screen per Nursing Assess ONCE Comment: Protocol Order Physician Instructions: Greater than 3 points order RT Admission Screen Reason For Exam: Triggered on Admission Diagnosis: ACS, Chest pain Diagnosis: ACS, Chest pain Pneumonia: No Home O2: No Asthma: Yes CHF: Yes Home CPAP/BIPAP: Yes Home Nebs/MDI: Yes Total Points: 17 08/09/24 07:00 Respiratory Therapy Assessment DAILY Comment: 10CM H2O Diagnosis: ACS, Chest pain Discharge Exam General Appearance: no apparent distress, alert, obese Neurologic Exam: alert, oriented x 3, cooperative, normal mood/affect, nml cerebellar function, sensation nml, No motor deficits Eye Exam: PERRL, EOMI, eyes nml inspection Ears, Nose, Throat Exam: normal ENT inspection, pharynx normal, moist mucous membranes Neck Exam: normal inspection, non-tender, supple, full range of motion Respiratory Exam: normal breath sounds, lungs clear, No respiratory distress Cardiovascular Exam: regular rate/rhythm, normal heart sounds Gastrointestinal/Abdomen Exam: soft, No tenderness, No mass Pelvic Exam: deferred Rectal Exam: deferred Back Exam: normal inspection, normal range of motion, No CVA tenderness, No vertebral tenderness Extremity Exam: normal inspection, normal range of motion Skin Exam: normal color, warm, dry Final Diagnosis/Problem List - Final Discharge Diagnosis/Problem (1) Chest discomfort Current Visit: Yes Status: Acute Code(s): R07.89 - OTHER CHEST PAIN (2) Tachycardia Current Visit: Yes Status: Resolved Code(s): R00.0 - TACHYCARDIA, UNSPECIFIED (3) Palpitations Current Visit: Yes Status: Resolved Code(s): R00.2 - PALPITATIONS (4) Fibromyalgia Current Visit: Yes Status: Chronic (5) GERD (gastroesophageal reflux disease) Current Visit: Yes Status: Chronic Code(s): K21.9 - GASTRO-ESOPHAGEAL REFLUX DISEASE WITHOUT ESOPHAGITIS (6) Morbid obesity with BMI of 45.0-49.9, adult Current Visit: Yes Status: Chronic Code(s): E66.01 - MORBID (SEVERE) OBESITY DUE TO EXCESS CALORIES; Z68.42 - BODY MASS INDEX [BMI] 45.0-49.9, ADULT (7) Sleep apnea Current Visit: Yes Status: Chronic Code(s): G47.30 - SLEEP APNEA, UNSPECIFIED (8) Depression with anxiety Current Visit: Yes Status: Chronic Code(s): F41.8 - OTHER SPECIFIED ANXIETY DISORDERS (9) COPD (chronic obstructive pulmonary disease) Current Visit: Yes Status: Chronic Assessment & Plan: (1) Chest discomfort Current Visit: Yes Status: Acute Assessment & Plan: - 2:2 PFT testing today - Tele - Trops x3-trend - trop x3 negative - Echo - CBC, CMP reviewed - EKG - CXR - negative for acute concern Code(s): R07.89 - OTHER CHEST PAIN (2) Tachycardia Current Visit: Yes Status: Resolved Assessment & Plan: - resolved since admission Code(s): R00.0 - TACHYCARDIA, UNSPECIFIED (3) Palpitations Current Visit: Yes Status: Resolved Assessment & Plan: - resolved since admission Code(s): R00.2 - PALPITATIONS (4) Fibromyalgia Current Visit: Yes Status: Chronic (5) GERD (gastroesophageal reflux disease) Current Visit: Yes Status: Chronic Assessment & Plan: -Continue home meds Code(s): K21.9 - GASTRO-ESOPHAGEAL REFLUX DISEASE WITHOUT ESOPHAGITIS (6) Morbid obesity with BMI of 45.0-49.9, adult Current Visit: Yes Status: Chronic Assessment & Plan: - advised ADA diet and exercise control Code(s): E66.01 - MORBID (SEVERE) OBESITY DUE TO EXCESS CALORIES; Z68.42 - BODY MASS INDEX [BMI] 45.0-49.9, ADULT (7) Sleep apnea Current Visit: Yes Status: Chronic Assessment & Plan: - RT to set up cpap at night Code(s): G47.30 - SLEEP APNEA, UNSPECIFIED (8) Depression with anxiety Current Visit: Yes Status: Chronic Assessment & Plan: - continue home meds Code(s): F41.8 - OTHER SPECIFIED ANXIETY DISORDERS (9) COPD (chronic obstructive pulmonary disease) Current Visit: Yes Status: Chronic Assessment & Plan: - Continue home meds - had PFT testing today - Discharge Discharge Date: 08/09/24 Disposition: Home, Self-Care Condition: Stable Prescriptions: Continue Potassium Chloride [Klor-Con M20] 20 meq PO DAILY Albuterol Sulfate Mdi [ALBUTEROL/Proair Hfa MDI] 2 puff IH Q4HPRN PRN PRN Reason: Shortness Of Breath/Wheezing metOLazone [Metolazone] 5 mg PO MOTH Nystatin Powder 15 gm [Nystop Powder 15 gm] 1 gm TP BID Montelukast Sodium 10 mg [Singulair 10 MG] 10 mg PO DAILY Buspirone HCl 5 mg [Buspar 5 mg] 15 mg PO TID Fluticasone/Vilanterol [Breo Ellipta 200-25 Mcg Inhalr] 1 puff IH DAILY Desvenlafaxine [Desvenlafaxine ER] 50 mg PO DAILY Dapagliflozin Propanediol [Dapagliflozin] 10 mg PO QAM Tiotropium [place] Inhaler [Spiriva 18 Mcg/Cap Inhaler] 1 puff IH DAILY PRN PRN PRN Reason: Shortness Of Breath Omeprazole 20 mg PO DAILY Loratadine 10 mg [Claritin 10 mg] 10 mg PO DAILY Famotidine 20 mg [Pepcid 20 MG] 20 mg PO BID Hydroxyzine HCl 25 mg [Atarax 25 mg] 25 mg PO DAILY PRN PRN PRN Reason: Anxiety Diclofenac Sodium [Voltaren Arthritis Pain] 20 gm TP BID Spironolactone [Aldactone] 50 mg PO QAM estradioL [Estradiol (Once Weekly)] 1 each TD WEEKLY Tirzepatide [Mounjaro] 1 ml SQ TH Hydrocodone/Acetaminophen [Hydrocodone-Acetamin 10-325 mg] 1 tab PO TIDPRN PRN PRN Reason: Pain Gabapentin [Neurontin] 800 mg PO QID Duloxetine HCl 30 mg [Cymbalta 30 MG Capsule] 30 mg PO QAM Hydroxychloroquine Sulfate [Plaquenil] 200 mg PO DAILY Follow up with: FARNAZ NGUYEN [Other]
[2024-08-09 11:34] VITALS: BP 140/63; PULSE 71; RESP 16; TEMP 97.7; O2SAT 97
[2024-08-10] MEDS ORDERED: Zaroxolyn 2.5 MG PO SCH (10:00)
[2024-08-10] MEDS ORDERED: NON-FORMULARY ITEM (Metolazone [Metolazone] 5 MG Tablet) PO SCH (15:10)
== END 2024-08-09 13:26 | disposition home health service (06) ==
LOC: ED 10:25 → MED SURG 13:55
PROVIDERS: ADMIT Internal Medicine; ATTEND Internal Medicine
DX: R07.89 Other chest pain (principal); R00.0 Tachycardia, unspecified; R00.2 Palpitations; M79.7 Fibromyalgia; K21.9 Gastro-esophageal reflux disease without esophagitis; E66.01 Morbid (severe) obesity due to excess calories; Z68.42 Body mass index [BMI] 45.0-49.9, adult; G47.30 Sleep apnea, unspecified; F41.8 Other specified anxiety disorders; J44.9 Chronic obstructive pulmonary disease, unspecified; I50.9 Heart failure, unspecified; R73.03 Prediabetes; Z79.899 Other long term (current) drug therapy
CPT/HCPCS: 36415; 71045; 80048; 80053; 83880; 84484; 85025; 85027; 85379; 93005; 93041; 93268; 93306; 94640; 94660; 94760; 99285; G0378; Q3014; J1650; A9270-GY